=== PATIENT | female | born 1990 | race Caucasian/White ===

== ENCOUNTER 2019-09-14 20:13 | Emergency (ER) | payer MEDICAID ==
[~2019-09-14] VITALS: Ht 165.1 cm; Wt 104.5 kg
[2019-09-14 22:26] VITALS: BP 170/80
== END 2019-09-14 22:26 | disposition home or self-care (01) ==
LOC: ED 20:13
DX: L60.0 Ingrowing nail (principal); I10 Essential (primary) hypertension; Z98.890 Other specified postprocedural states; Z88.8 Allergy status to other drugs, medicaments and biological substances
CPT/HCPCS: J2001